=== PATIENT | male | born 1985 | race African-American/Black ===

== ENCOUNTER 2022-10-06 17:19 | Inpatient (IN) | payer OTHER ==
[~2022-10-06] VITALS: Ht 182.9 cm; Wt 53.1 kg
[2022-10-06 18:44] LABS: MEAN CORPUSCULAR HEMOGLOBIN 31.1 pg (28.0-32.0); MEAN CORPUSCULAR VOLUME 100.8 fL (80.0-94.0); MEAN PLATELET VOLUME 8.3 fl (7.4-10.4); PLATELET 432 x1000/uL (130-400); RED BLOOD CELL COUNT 1.26 mill/uL (4.7-6.1); RED CELL DISTRIBUTION WIDTH 14.1 % (11.6-14.6)
[2022-10-06 18:48] LABS: HEMATOCRIT. 12.7 % (42.0-52.0); HEMOGLOBIN. 3.9 g/dL (14.0-18.0)
[2022-10-06 18:50] LABS: CHLORIDE 93 mEq/L (98-107)
[2022-10-06 18:59] LABS: CREATINE KINASE 110 IU/L (39-308); ETHANOL BLOOD < 10 mg/dL
[2022-10-06] MEDS ORDERED: SODIUM BICARBONATE 8.4% 1 MEQ/ML 50ML SYR IV ONE ×2 (19:15)
[2022-10-06 19:30] LABS: PLATELET ESTIMATE INCREASED
[2022-10-06 19:52] LABS: TOTAL IRON BINDING CAPACITY 289 ug/dL (250-450)
[2022-10-06 20:22] LABS: FOLIC ACID (FOLATE) SERUM 5.6 ng/mL (>5.38)
[2022-10-06 21:40] LABS: CLARITY URINE CLEAR (CLEAR); COLOR URINE YELLOW (YELLOW); KETONES URINE NEGATIVE (NEGATIVE); LEUKOCYTE ESTERASE URINE NEGATIVE (NEGATIVE); NITRITE URINE NEGATIVE (NEGATIVE); OCCULT BLOOD URINE NEGATIVE (NEGATIVE); PROTEIN URINE NEGATIVE (NEGATIVE); SPECIFIC GRAVITY URINE 1.023 (1.005-1.030); UROBILINOGEN URINE 0.2 E.U./dL (0.2-1.0)
[2022-10-06] MEDS ORDERED: PANTOPRAZOLE SODIUM 40 MG/VIAL IV NR (22:00)
[2022-10-06 22:03] LABS: *AMPHETAMINES SCREEN URINE NEGATIVE (NEGATIVE); *BARBITURATES SCREEN URINE NEGATIVE (NEGATIVE); *BENZODIAZEPINES SCREEN URINE NEGATIVE (NEGATIVE); *COCAINE SCREEN URINE NEGATIVE (NEGATIVE); CANNABINOID URINE SCREEN PRESUMTIVE POSITIVE (NEGATIVE); METHADONE URINE SCREEN NEGATIVE (NEGATIVE); OPIATES URINE SCREEN NEGATIVE (NEGATIVE); PHENCYCLIDINE URINE SCREEN NEGATIVE (NEGATIVE)
[2022-10-06] MEDS ORDERED: IOHEXOL-300 100 ML BOTTLE ONE (23:07)
[2022-10-06] MEDS: ACETAMINOPHEN 325MG TABLET PO NR ×2 (23:32→23:34)
[2022-10-07] VITALS (9 sets, daily range): BP systolic 104–137; BP diastolic 38–87
[2022-10-07] MEDS ORDERED: ONDANSETRON HCL 4MG/2ML INJ IV PRN (09:30)
[2022-10-07] MEDS ORDERED: PANTOPRAZOLE SODIUM 40 MG/VIAL IV SCH (09:30)
[2022-10-07] MEDS: LEVETIRACETAM 500MG TABLET PO SCH ×2 (10:28→21:07)
[2022-10-07 12:20] LABS: HEMATOCRIT 25.6 % (42.0-52.0); HEMOGLOBIN 8.9 g/dL (14.0-18.0)
[2022-10-07] MEDS ORDERED: INFLUENZA VACCINE 05/PF 0.5 ML SYRINGE IM ONE (14:15)
[2022-10-07] MEDS ORDERED: PNEUMOCOCCAL 23-VAL P-SAC VAC 0.5 ML IM ONE (14:15)
[2022-10-07] MEDS: ACETAMINOPHEN 325MG TABLET PO PRN ×2 (16:20→20:24)
[2022-10-07] MEDS: PANTOPRAZOLE SODIUM 40 MG/VIAL IV SCH (16:51)
[2022-10-07 16:55] LABS: BASOPHILS % 0.6 % (0.0-2.0); EOSINOPHILS % 0.3 % (0.0-5.0); HEMATOCRIT. 24.8 % (42.0-52.0); HEMOGLOBIN. 8.7 g/dL (14.0-18.0); LYMPHOCYTES % 17.5 % (20.0-50.0); MEAN CORPUSCULAR HEMOGLOBIN 32.3 pg (28.0-32.0); MEAN CORPUSCULAR VOLUME 91.6 fL (80.0-94.0); MEAN PLATELET VOLUME 7.8 fl (7.4-10.4); MONOCYTES % 7.3 % (2.0-8.0); NEUTROPHILS % 74.3 % (40.0-76.0); PLATELET 425 x1000/uL (130-400); RED CELL DISTRIBUTION WIDTH 13.8 % (11.6-14.6)
[2022-10-07 17:18] LABS: CHLORIDE 101 mEq/L (98-107)
[2022-10-07] MEDS: IRON SUCROSE COMPLEX 100 MG/5 ML ML IV SCH (18:36)
[2022-10-07] MEDS ORDERED: MINERAL OIL ENEMA 133ML PR NR (20:00)
[2022-10-07] MEDS ORDERED: HYDROCODONE/ACETAMINOPHEN 10/325MG TABLET PO PRN (20:45)
[2022-10-07] MEDS ORDERED: NALOXONE HCL 0.4MG/ML VIAL IV PRN (20:45)
[2022-10-07] MEDS: SUCRALFATE 1 G/10 ML UDC PO SCH (21:07)
[2022-10-07] MEDS: MAGNESIUM/ALUMINUM HYDROXIDE/SIMETHICONE 30ML UDC PO PRN (21:09)
[2022-10-07 21:31] LABS: HEMATOCRIT 22.3 % (42.0-52.0); HEMOGLOBIN 7.6 g/dL (14.0-18.0)
[2022-10-08] VITALS: BP 137/38
[2022-10-08 01:31] LABS: HEMATOCRIT 22.2 % (42.0-52.0); HEMOGLOBIN 7.5 g/dL (14.0-18.0)
[2022-10-08 02:00] VITALS: BP 126/41
[2022-10-08 04:00] VITALS: BP 129/45
[2022-10-08 06:00] VITALS: BP 130/49
[2022-10-08 06:46] LABS: BASOPHILS % 0.6 % (0.0-2.0); EOSINOPHILS % 0.7 % (0.0-5.0); HEMATOCRIT. 25.6 % (42.0-52.0); HEMOGLOBIN. 8.9 g/dL (14.0-18.0); LYMPHOCYTES % 24.2 % (20.0-50.0); MEAN CORPUSCULAR HEMOGLOBIN 32.3 pg (28.0-32.0); MEAN CORPUSCULAR VOLUME 92.7 fL (80.0-94.0); MEAN PLATELET VOLUME 8.1 fl (7.4-10.4); MONOCYTES % 7.9 % (2.0-8.0); NEUTROPHILS % 66.6 % (40.0-76.0); PLATELET 478 x1000/uL (130-400); RED BLOOD CELL COUNT 2.77 mill/uL (4.7-6.1); RED CELL DISTRIBUTION WIDTH 14.1 % (11.6-14.6)
[2022-10-08 07:39] LABS: CHLORIDE 101 mEq/L (98-107)
[2022-10-08 08:00] VITALS: BP 124/73
[2022-10-08] MEDS: LEVETIRACETAM 500MG TABLET PO SCH ×2 (08:44→22:14)
[2022-10-08] MEDS: SUCRALFATE 1 G/10 ML UDC PO SCH ×4 (08:44→22:14)
[2022-10-08] MEDS: CYANOCOBALAMIN 1000MCG/ML VIAL IM SCH (08:45)
[2022-10-08] MEDS: PANTOPRAZOLE SODIUM 40 MG/VIAL IV SCH ×2 (08:45→15:59)
[2022-10-08] MEDS: SORBITOL 70% SOLN 30ML PO SCH ×2 (08:46→15:58)
[2022-10-08] MEDS ORDERED: FOLIC ACID/VITAMIN B COMP W-C TABLET PO SCH (09:00)
[2022-10-08] MEDS ORDERED: BISACODYL 5MG TABLET PO SCH (09:00)
[2022-10-08] MEDS ORDERED: LACTULOSE 20G/30ML UDC PO NR (11:00)
[2022-10-08] MEDS ORDERED: CEFTRIAXONE 1 G PREMIX 50 ML IV SCH (11:00)
[2022-10-08 13:09] LABS: HEMATOCRIT 22.4 % (42.0-52.0); HEMOGLOBIN 7.6 g/dL (14.0-18.0)
[2022-10-08] MEDS ORDERED: MAGNESIUM/ALUMINUM HYDROXIDE/SIMETHICONE 30ML UDC PO PRN (14:45)
[2022-10-08] MEDS: CEFTRIAXONE 1,000 MG in DEXTROSE 5% WATER 50 ML IV SCH (15:02)
[2022-10-08] MEDS: MAGNESIUM/ALUMINUM HYDROXIDE/SIMETHICONE 30ML UDC PO PRN (15:03)
[2022-10-08] MEDS ORDERED: BISACODYL 5MG TABLET PO NR ×2 (16:45→20:45)
[2022-10-08] MEDS ORDERED: METOCLOPRAMIDE HCL 10MG/2ML VIAL IV NR ×2 (16:45→20:45)
[2022-10-08] MEDS ORDERED: SORBITOL 70% SOLN 30ML PO NR ×2 (17:00→21:00)
[2022-10-08] MEDS: IRON SUCROSE COMPLEX 100 MG/5 ML ML IV SCH (17:37)
[2022-10-08 18:53] LABS: HEMATOCRIT 24.3 % (42.0-52.0); HEMOGLOBIN 8.2 g/dL (14.0-18.0)
[2022-10-08] MEDS: ACETAMINOPHEN 325MG TABLET PO PRN (19:04)
[2022-10-08 20:55] VITALS: BP 141/89
[2022-10-09 01:09] LABS: HEMOGLOBIN 8.1 g/dL (14.0-18.0)
[2022-10-09 03:23] LABS: INR 0.9; PROTHROMBIN TIME 9.5 sec (9.6-11.0)
[2022-10-09 03:27] LABS: CHLORIDE 106 mEq/L (98-107)
[2022-10-09 03:45] LABS: BASOPHILS % 0.5 % (0.0-2.0); EOSINOPHILS % 0.7 % (0.0-5.0); HEMATOCRIT. 25.6 % (42.0-52.0); HEMOGLOBIN. 8.9 g/dL (14.0-18.0); LYMPHOCYTES % 17.1 % (20.0-50.0); MEAN CORPUSCULAR HEMOGLOBIN 32.4 pg (28.0-32.0); MEAN CORPUSCULAR VOLUME 93.6 fL (80.0-94.0); MEAN PLATELET VOLUME 7.5 fl (7.4-10.4); MONOCYTES % 8.3 % (2.0-8.0); NEUTROPHILS % 73.4 % (40.0-76.0); PLATELET 527 x1000/uL (130-400); RED BLOOD CELL COUNT 2.74 mill/uL (4.7-6.1); RED CELL DISTRIBUTION WIDTH 14.1 % (11.6-14.6)
[2022-10-09 08:00] VITALS: BP 124/73
[2022-10-09] MEDS ORDERED: FOLIC ACID/VITAMIN B COMP W-C TABLET PO SCH (09:00)
[2022-10-09 10:00] VITALS: BP 132/80
[2022-10-09] MEDS: PANTOPRAZOLE SODIUM 40 MG/VIAL IV SCH (10:26)
[2022-10-09] MEDS: CYANOCOBALAMIN 1000MCG/ML VIAL IM SCH (10:31)
[2022-10-09 12:00] VITALS: BP 128/78
[2022-10-09] MEDS: CEFTRIAXONE 1,000 MG in DEXTROSE 5% WATER 50 ML IV SCH (12:38)
[2022-10-09 12:41] LABS: HEMATOCRIT 26.4 % (42.0-52.0); HEMOGLOBIN 8.9 g/dL (14.0-18.0)
[2022-10-09] MEDS ORDERED: OMEP40CA20 MT (14:27)
[2022-10-09] MEDS ORDERED: ETOMIDATE 2MG/ML 10ML VIAL IV ONE (14:32)
[2022-10-09] MEDS ORDERED: PROPOFOL 200MG/20ML VIAL IV ONE ×3 (14:32→15:16)
[2022-10-09] MEDS ORDERED: MIDAZOLAM HCL 5 MG/5 ML VIAL ONE (14:35)
[2022-10-09] MEDS ORDERED: LIDOCAINE HCL 1% 10 MG/ML 10ML VIAL ONE (14:37)
[2022-10-09] MEDS ORDERED: FENTANYL CITRATE/PF 50MCG/ML 2ML VIAL ONE (15:22)
[2022-10-09 18:19] VITALS: BP 123/60
[2022-10-09] MEDS ORDERED: SUCRALFATE 1G TABLET PO SCH (21:00)
[2022-10-09] MEDS ORDERED: SUCR1TAB MT (21:22)
[2022-10-10] MEDS ORDERED: PANTOPRAZOLE 40MG DR TABLET PO SCH (07:30)
== END 2022-10-09 18:50 | disposition home or self-care (01) | DRG 241 ==
LOC: ER 17:19 → EDBEDREQ 21:20 → 5EST 10-07 08:50
PROVIDERS: ADMIT Internal Medicine; ATTEND Internal Medicine
PROC: 30233N1 Transfusion of Nonautologous Red Blood Cells into Peripheral Vein, Percutaneous Approach (ICD-10-PCS; 2022-10-06)
PROC: 0DB68ZX Excision of Stomach, Via Natural or Artificial Opening Endoscopic, Diagnostic (ICD-10-PCS; principal; 2022-10-09)
PROC: 0DJD8ZZ Inspection of Lower Intestinal Tract, Via Natural or Artificial Opening Endoscopic (ICD-10-PCS; 2022-10-09)
DX: K26.4 Chronic or unspecified duodenal ulcer with hemorrhage (principal); E43 Unspecified severe protein-calorie malnutrition; K22.11 Ulcer of esophagus with bleeding; G90.8 Other disorders of autonomic nervous system; D50.9 Iron deficiency anemia, unspecified; D72.829 Elevated white blood cell count, unspecified; F12.90 Cannabis use, unspecified, uncomplicated; F17.210 Nicotine dependence, cigarettes, uncomplicated; K29.71 Gastritis, unspecified, with bleeding; G40.909 Epilepsy, unspecified, not intractable, without status epilepticus; Z20.822 Contact with and (suspected) exposure to COVID-19; Z68.1 Body mass index [BMI] 19.9 or less, adult; K64.8 Other hemorrhoids; F41.9 Anxiety disorder, unspecified; D62 Acute posthemorrhagic anemia
CPT/HCPCS: 36415; 71045; 74018; 74177; 76705; 80048; 80053; 80305; 80307; 80320; 80329; 81003; 82105; 82140; 82270; 82378; 82550; 82607; 82746; 83540; 83550; 83605; 84145; 84484; 85014; 85018; 85025; 85044; 86301; 86850; 86900; 86920; 87426; 88305; 90686; 90732; 93005; 99291; C1893; C9113; J0696; J2250; J2704; J2765; J3010; J3420; J3490; J7060; P9016; Q9967; G0480